=== PATIENT | male | born 1965 | race Caucasian/White ===

== ENCOUNTER 2018-06-01 22:15 | Inpatient (IN) | payer OTHER ==
[~2018-06-01] VITALS: Ht 182.9 cm; Wt 107.5 kg
--- NOTE | 2018-06-01 22:19 | ED DYSPNEA/ASTHMA COMPLAINT ---
History of Present Illness General Chief Complaint: Dyspnea (COPD, CHF, Other) Stated Complaint: DIFF BREATHING Source: patient, old records, EMS Exam Limitations: clinical condition Vital Signs & Intake/Output Vital Signs & Intake/Output Vital Signs Date Time Temp Pulse Resp B/P B/P Pulse O2 O2 Flow FiO2 Mean Ox Delivery Rate 06/02 0605 125 06/02 0308 101 97 06/02 0117 98.4 105 22 126/66 96 Nasal 6.0L Cannula 06/02 0105 102 96 06/01 2248 98.4 109 22 153/93 95 Aerosol Mask 06/01 2220 95 Aerosol 6.0L Mask ED Intake and Output 06/02 0000 06/01 1200 Intake Total Output Total Balance Patient 230 lb Weight Weight Reported by Patient Measurement Method Reconcile Medications Albuterol Sulfate (Proair Hfa) 90 MCG HFA.AER.AD 2 PUF INH Q4-6 PRN PRN COPD (Reported) Levocetirizine Dihydrochloride 5 MG TABLET 1 TAB PO QPM ALLERGY (Reported) Lisinopril 20 MG TABLET 1 TAB PO DAILY HTN (Reported) Metoprolol Succinate 50 MG TAB.ER.24H 1 TAB PO DAILY HEART HEALTH (Reported) [place]-3 Acid Ethyl Esters 1 GRAM CAPSULE 2 CAP PO BID SUPPLEMENT (Reported) Promethazine HCl/Codeine (Promethazine-Codeine Syrup) 6.25 MG-10 MG/5 ML SYRUP 10 ML PO QPM ALLERGY (Reported) Rosuvastatin Calcium (Crestor) 20 MG TABLET 1 TAB PO DAILY HL (Reported) Verapamil HCl (Verapamil ER) 120 MG TABLET.ER 1 TAB PO DAILY HTN (Reported) Triage Nurses Notes Reviewed? 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 HPI: 52yo gentleman h/o paroxysmal afib, left bundle branch block, presents with dyspnea for the past 4-5 days, which got worse tonight. He shares that he had sick contacts 4-5 days ago, "and then I got it." The medics noted that his 02 sat was 88-90% upon arrival. He was tripoding, unable to speak in complete sentences. He was given solumedrol 125mg iv, placed on continuous nebs and given magnesium sulfate 4gm iv. Upon arrival, he was still breathless, with difficulty speaking, nearly tripoding. Past History Travel History Traveled to [place] past 21 day No Medical History Any Pertinent Medical History? see below for history Cardiovascular: LBBB, paroxysmal atrial fibrillation Surgical History Surgical History: non-contributory Family History Hx Contributory? No Review of Systems Review of Systems Constitutional: Reports: no symptoms. EENTM: Reports: no symptoms. Respiratory: Reports: no symptoms. Cardiovascular: Reports: no symptoms. GI: Reports: no symptoms. Genitourinary: Reports: no symptoms. Musculoskeletal: Reports: no symptoms. Skin: Reports: no symptoms. Neurological/Psychological: Reports: no symptoms. Hematologic/Endocrine: Reports: no symptoms. Immunologic/Allergic: Reports: no symptoms. All Other Systems: Reviewed and Negative Physical Exam Physical Exam General Appearance: well developed/nourished, moderate distress Head: atraumatic, normal appearance Eyes: Bilateral: normal appearance. Ears, Nose, Throat: normal pharynx, normal ENT inspection, hearing grossly normal Neck: normal inspection, supple, full range of motion Respiratory: decreased breath sounds, crackles, respiratory distress, bilateral wheeze w/prolonged expiratory phase. Cardiovascular: regular rate/rhythm Gastrointestinal: normal bowel sounds, soft, non-tender, no organomegaly Rectal: normal exam Extremities: normal inspection, normal capillary refill, normal range of motion, no edema Neurologic/Psych: no motor/sensory deficits, awake, alert, oriented x 3 Skin: intact, normal color Core Measures ACS in differential dx? No CVA/TIA Diagnosis No Sepsis Present: No Sepsis Focused Exam Completed? No Progress Differential Diagnosis: asthma, AMI, bronchitis, CHF, COPD Plan of Care: Orders Procedure Date/time Status EKG 06/03 1030 Active CBC WITHOUT DIFFERENTIAL 06/03 0600 Active BASIC ELECTROLYTES PLUS BUN&CR 06/03 0600 Active EKG 06/03 0430 Active Nothing by Mouth 06/02 B Active TROPONIN LEVEL 06/02 1030 Active EKG 06/02 1030 Active LACTIC ACID 06/02 0503 Active TROPONIN LEVEL 06/02 0430 Active EKG 06/02 0430 Active LACTIC ACID 06/02 0124 Complete Weight 06/02 0116 Active Vital Signs 06/02 0116 Active Teach/Educate 06/02 011 Active Pain Treatment and Response 08/30 0116 Active Nutritional Intake, Monitor 06/02 0116 Active Isolation 06/02 0116 Active Intake & Output 06/02 0116 Active Patient Care Conference 06/02 0116 Active Activity/Ambulation 06/02 0116 Active Lab Add-on Test 06/02 0032 Active Saline Lock 06/02 0031 Active Pathway - chart 06/02 0031 Active Patient Data 06/02 0031 Active CULTURE,URINE 06/02 0031 Active LOWER RESPIRATORY CULTURE 06/02 0031 Active URINALYSIS 06/02 0031 Active TRC EVALUATION (GEN) 06/02 UNK Active PEAK FLOW MEASUREMENT (GEN) 06/02 UNK Active OXYGEN SETUP (GEN) 06/02 UNK Active CONTIN. POSITIVE AIRWAY PRESS 06/02 UNK Complete House Staff 06/02 UNK Active Lab Add-on Test 06/02 UNK Active VTE Mechanical Prophylaxis 06/02 UNK Active Vital Signs 06/02 UNK Active Telemetry/Heating And Ventilating Tender 06/02 UNK Active Intake & Output 06/02 UNK Active Activity/Ambulation 06/02 UNK Active Patient Data 06/01 2349 Active Saline Lock 06/01 2340 Active Misc Message 06/01 2340 Active ED Holding Orders 06/01 2340 Active Admit to inpatient 06/01 2340 Active Vital Signs 06/01 2340 Active Code Status 06/01 2340 Active CONTIN. POSITIVE AIRWAY PRESS 06/01 2330 Complete EKG 06/01 2330 Active TSH REFLEX 06/01 2232 Complete PHOSPHORUS 06/01 2232 Complete MAGNESIUM 06/01 2232 Complete D-DIMER 06/01 223 Complete BLOOD CULTURE 06/01 223 Active BLOOD CULTURE 06/01 2225 Active TROPONIN LEVEL 06/01 2224 Complete LIPASE 06/01 2224 Complete LACTIC ACID 06/01 2224 Complete HEPATIC FUNCTION PANEL 06/01 2224 Complete CBC WITHOUT DIFFERENTIAL 06/01 222 Complete BASIC METABOLIC PANEL 06/01 2224 Complete AMYLASE 06/01 222 Complete EKG 06/01 2224 Active Current Medications Sig/Clemente Start time Last Medication Dose Stop Time Status Admin Atorvastatin Calcium 20 MG 1700 06/02 1700 AC (Lipitor) Azithromycin 500 MG DAILY 06/02 09 AC (Zithromax) Sodium Chloride 250 ML (Normal Saline 0.9%) Enoxaparin Sodium 40 MG DAILY 06/02 09 AC (Lovenox) Lisinopril 20 MG DAILY 06/02 09 AC (Prinivil) Metoprolol Succinate 50 MG DAILY 06/02 09 AC (Toprol Xl) Verapamil HCl 120 MG DAILY 06/02 09 AC (Isoptin-Calan Sr 120MG Tab) Sodium Chloride 1,000 ML Q6H 06/02 0330 AC 06/02 (Normal Saline 0.9%) 0555 Methylprednisolone 40 MG Q6 06/02 0130 AC 06/02 (Solumedrol) 0555 Sodium Chloride 3,129.78 ML ONCE ONE 06/02 0045 CAN (Normal Saline 0.9%) 06/02 0046 Acetaminophen 1,000 MG Q6P PRN 06/02 003 AC (Ofirmev) Ibuprofen 600 MG Q6P PRN 06/02 003 AC (Motrin) Oxycodone/ 1 TAB Q6P PRN 06/02 003 AC Acetaminophen (Percocet) Laboratory Tests 06/02/18 0500: Troponin I Pending 06/02/18 0500: Lactic Acid Pending 06/02/18 0200: Lactic Acid 5.9 H 06/01/182: Anion Gap 15, Estimated GFR > 60, BUN/Creatinine Ratio 20.0, Glucose 175 H, Lactic Acid 4.6 H, Calcium 10.3 H, Phosphorus 2.4 L, Magnesium 3.0 H, Total Bilirubin 0.4, Direct Bilirubin 0.3, AST 21, ALT 27, Alkaline Phosphatase 80, Troponin I < 0.01, Total Protein 7.5, Albumin 4.7, Amylase 50, Lipase 133, TSH & T3 &Free T4 Intrp 0.583, D-Dimer High Sensitivty < 200, CBC w Diff NO MAN DIFF REQ, RBC 4.94, MCV 92.1, MCH 30.5, MCHC 33.1, RDW 14.3, MPV 8.2, Gran % 75.2, Lymphocytes % 18.1 L, Monocytes % 6.5, Eosinophils % 0, Basophils % 0.2, Absolute Granulocytes 14.8 H, Absolute Lymphocytes 3.6 H, Absolute Monocytes 1.3 H, Absolute Eosinophils 0, Absolute Basophils 0 Microbiology 06/02 31 URINE ROUT: Urine Culture - COLB 06/02 31 LOWER RESP: Respiratory Culture - COLB 06/02 31 LOWER RESP: Gram Stain - COLB 06/01 2325 BLOOD: Blood Culture - RECD 06/01 2310 BLOOD: Blood Culture - RECD Diagnostic Imaging: Viewed by Me: Radiology Read. Discussed w/RAD: Radiology Read. CXR Impression: PATIENT: JOSE WHITAKER PRESENT AGE: 52 PATIENT ACCOUNT NO: [id number] : 67 LOCATION: [facility] ORDERING PHYSICIAN: John Rodrigues MD SERVICE DATE: 06/01/18 EXAM TYPE: RAD - XRY- PORTABLE CHEST XRAY EXAMINATION: XR PORTABLE CHEST CLINICAL INFORMATION: Chest pain. COMPARISON: None TECHNIQUE: Portable frontal view of the chest was obtained. 10:42 PM FINDINGS: No significant abnormality is noted involving the heart, lungs, mediastinum, bony thorax or soft tissues. IMPRESSION: No acute abnormality of the chest. DICTATED BY: Asher Irby MD DATE/TIME DICTATED:2306 DANCE ENTERTAINER:REID DATE/TIME TRANSCRIBED:06/01/182306 CONFIDENTIAL, DO NOT COPY WITHOUT APPROPRIATE AUTHORIZATION. <Electronically signed in Other Vendor System> SIGNED BY: Asher Irby MD 06/01/182310 Initial ED EKG: lbbb (old) Departure Departure Disposition: STILL A PATIENT Condition: Stable Clinical Impression Primary Impression: COPD exacerbation Secondary Impressions: Nonsustained ventricular tachycardia Departure Forms: Customer Survey General Discharge Information Admission Note Sp[facility]: [facility] Documentation of Exam: Documentation of any treatments & extenuating circumstances including Concerns Regarding Discharge (functional status, medication knowledge or non-compliance, living conditions, etc.) that warrant an admission rather than observation: pt with dyspnea, most consistent with asthma exacerbation vs copd... pt presented breathless, tripoding. Critical Care Note Critical Care Note Critical Care Time: 30-74 min Comments: mag sulfate en route, continuous nebs,
[2018-06-01 22:47] LABS: ABSOLUTE BASOPHIL COUNT 0 /CUMM (0.0-0.2); ABSOLUTE EOSINOPHIL COUNT 0 /CUMM (0.0-0.7); ABSOLUTE GRANULOCYTE CT 14.8 /CUMM (1.4-6.5); ABSOLUTE LYMPH COUNT 3.6 /CUMM (1.2-3.4); ABSOLUTE MONOCYTE COUNT 1.3 /CUMM (0.10-0.60); BASOPHIL % 0.2 % (0.0-2.0); EOSINOPHIL % 0 % (0-5); HEMATOCRIT 45.5 % (42-52); MEAN CORPUSCULAR HGB 30.5 PG (27.0-31.0); MEAN CORPUSCULAR HGB CONC 33.1 G/DL (33.0-37.0); MEAN CORPUSCULAR VOLUME 92.1 FL (80.0-94.0); MEAN PLATELET VOLUME 8.2 FL (7.4-10.4); PLATELET COUNT 306 /CUMM (130-400); RBC DISTRIBUTION WIDTH 14.3 % (11.5-14.5); RED BLOOD CELL CT 4.94 /CUMM (4.70-6.10); WHITE BLOOD CELL COUNT 19.7 /CUMM (4.8-10.8)
[2018-06-01 23:06] LABS: GRANULOCYTE % 75.2 % (42.2-75.2)
--- NOTE | 2018-06-01 23:11 | RADIOLOGY REPORT ---
EXAMINATION: XR PORTABLE CHEST CLINICAL INFORMATION: Chest pain. COMPARISON: None TECHNIQUE: Portable frontal view of the chest was obtained. 10:42 PM FINDINGS: No significant abnormality is noted involving the heart, lungs, mediastinum, bony thorax or soft tissues. IMPRESSION: No acute abnormality of the chest.
--- NOTE | 2018-06-02 00:31 | History & Physical ---
Topher Izaguirre 06/02/18 0029: General Information and HPI MD Statement: I have seen and personally examined JULIANNEJOSE Wilks and documented this H&P. The patient is a 52 year old M who presented with a patient stated chief complaint of [difficulty breathing]. History of Present Illness: 52-year-old male with PMH of previous atrial fibrillation status post ablation ( 5 years ago), HTN, HLD, LAURIE on CPAP, COPD (suggested by medication regimen although patient denies ever being diagnosed), and seasonal allergies. This past week patient started having flu-like symptoms of non productive cough and nasal congestion. 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 Therefore he saw his cell stripper (who he usually follows for his allergies) and was prescribed bronchodilators, azithromycin, and a PO prednisone taper. Per patient, he has never used these respiratory medications prior to Wednesday. He was compliant with the regimen however his SOB continued to worsen eventually landing him at [place] ED. Patient is a previous smoker, believes he quit 3 years ago, and had a about half a PPD for about 20 years. His last hospitalization was for an episode of Afib that occured after his ablation for which he got IV Cardizem and prior to that the previous hospitalization was for his ablation. His ablation was done at [facility] and he usually follows with Dr. Berkowitz. According to patient he has had a LBBB for many years that he is well aware of. On presentation to the ED patient was in tripod postion and unable to speak and was therefore placed on continuous nebulizers as well as Solumedrol. He denies any diaphoresis, lightheadedness, changes in vision, or tingling/ numbness in his upper extremities. Allergies/Medications Home Med list Albuterol Sulfate (Proair Hfa) 90 MCG HFA.AER.AD 2 PUF INH Q4-6 PRN PRN COPD (Reported) Aspirin (Aspirin*) 81 MG TAB.CHEW 1 TAB PO DAILY HEART (Reported) Levocetirizine Dihydrochloride 5 MG TABLET 1 TAB PO QPM ALLERGY (Reported) Lisinopril 20 MG TABLET 1 TAB PO DAILY HTN (Reported) Metoprolol Succinate 50 MG TAB.ER.24H 1 TAB PO DAILY HEART HEALTH (Reported) [place]-3 Acid Ethyl Esters 1 GRAM CAPSULE 2 CAP PO BID SUPPLEMENT (Reported) Promethazine HCl/Codeine (Promethazine-Codeine Syrup) 6.25 MG-10 MG/5 ML SYRUP 10 ML PO QPM ALLERGY (Reported) Rosuvastatin Calcium (Crestor) 20 MG TABLET 1 TAB PO DAILY HL (Reported) Verapamil HCl (Verapamil ER) 120 MG TABLET.ER 1 TAB PO DAILY HTN (Reported) Past History Travel History Traveled to [place] past 21 day No Medical History Cardiovascular: LBBB paroxysmal atrial fibrillation Surgical History Surgical History: hip replacement Past Family/Social History Psychosocial History Smoking Status: Former Smoker ETOH Use: occasional use Employment History Employment EMT Review of Systems Review of Systems Constitutional: Reports: see HPI. Exam & Diagnostic Data Last 24 Hrs of Vital Signs/I&O Vital Signs Date Time Temp Pulse Resp B/P B/P Pulse O2 O2 Flow FiO2 Mean Ox Delivery Rate 06/02 0308 101 97 06/02 0117 98.4 105 22 126/66 96 Nasal 6.0L Cannula 06/02 0105 102 96 06/01 2248 98.4 109 22 153/93 95 Aerosol Mask 06/01 2220 95 Aerosol 6.0L Mask Intake & Output 06/02 0800 06/02 0000 06/01 1600 Intake Total Output Total Balance Patient 230 lb Weight Weight Reported by Patient Measurement Method Physical Exam General Appearance Alert, Oriented X3, Cooperative, No Acute Distress Skin Temp/Moisture Exam: Warm/Dry HEENT Atraumatic, EOMI Neck Supple, No JVD Cardiovascular Normal S1, Normal S2 Lungs Clear to Auscultation, Normal Air Movement Abdomen Normal Bowel Sounds, Soft, No Tenderness Neurological Normal Speech Extremities No Cyanosis, No Tenderness/Swelling Last 24 Hrs of Labs/Marc: Laboratory Tests 06/02/18 0500: Troponin I Pending 06/02/18 0500: Lactic Acid Pending 06/02/18 0200: Lactic Acid 5.9 H 06/01/182: Anion Gap 15, Estimated GFR > 60, BUN/Creatinine Ratio 20.0, Glucose 175 H, Lactic Acid 4.6 H, Calcium 10.3 H, Phosphorus 2.4 L, Magnesium 3.0 H, Total Bilirubin 0.4, Direct Bilirubin 0.3, AST 21, ALT 27, Alkaline Phosphatase 80, Troponin I < 0.01, Total Protein 7.5, Albumin 4.7, Amylase 50, Lipase 133, TSH & T3 &Free T4 Intrp 0.583, D-Dimer High Sensitivty < 200, CBC w Diff NO MAN DIFF REQ, RBC 4.94, MCV 92.1, MCH 30.5, MCHC 33.1, RDW 14.3, MPV 8.2, Gran % 75.2, Lymphocytes % 18.1 L, Monocytes % 6.5, Eosinophils % 0, Basophils % 0.2, Absolute Granulocytes 14.8 H, Absolute Lymphocytes 3.6 H, Absolute Monocytes 1.3 H, Absolute Eosinophils 0, Absolute Basophils 0 Microbiology 06/02 31 URINE ROUT: Urine Culture - COLB 06/02 31 LOWER RESP: Respiratory Culture - COLB 06/02 31 LOWER RESP: Gram Stain - COLB 06/01 2325 BLOOD: Blood Culture - RECD 06/01 2310 BLOOD: Blood Culture - RECD Assessment/Plan Assessment: 52-year-old male with PMH of previous atrial fibrillation status post ablation ( 5 years ago), HTN, HLD, LAURIE on CPAP, COPD (suggested by medication regimen although patient denies ever being diagnosed), and seasonal allergies. NSVT could be due to recent heavy albuterol use LBBB on EKG not concerning at the moment because patient has had it for many years Trops negative x 2 so far Patient reports worsening SOB for past week despite bronchodilator therapy We will continue nebs/bronchodilator/steroid therapy Elevated white count can be 2/2 to steroids but may also suggest infectious etiology CXR was negative for pneuomonia or acute process Tachycardia can be 2/2 to albuterol use Patient has been afebrile and he has been afebrile as well We should emperically treat for infection as he is positive for sick contacts Problems: #COPD Exacerbation #Leukocytosis (WBC 19.7) #NSVT #Prior hx of Afib s/p Ablation (not on A/C) #LAURIE on CPAP #HTN #HLD #Seasonal Allergies - Admit to telemetry due to new onset NSVT - Cardio consult - IV Medrol - Azithromycin - Ceftriaxone - DuoNebs - Metoprolol - Lisinopril - Verapamil - Lipitor - Continue CPAP - Biologic anti allergic meds DVT ppx Full Code As Ranked By This Provider Problem List: 1. COPD exacerbation Core Measures/Misc (06/20) Acute Coronary Syndrome ACS Diagnosis: No Congestive Heart Failure Congestive Heart Failure Diagnosis No Cerebrovascular Accident CVA/TIA Diagnosis: No VTE (View Protocol) VTE Risk Factors Age>40 No Mechanical VTE Prophylaxis d/t N/A MechProphylax Ordered No VTE Pharm Prophylaxis d/t NA PharmProphylax ordered Sepsis (View protocol) Sepsis Present: No If YES complete Sepsis Event Note If YES complete Sepsis Event Note Rachel Sprague 06/02/18 0033: Core Measures/Misc (06/20) Sepsis (View protocol) If YES complete Sepsis Event Note If YES complete Sepsis Event Note Resident Review Statement Resident Statement: examined this patient, discussed with software development intern, agreed with software development intern Other Findings: This is a 52-year-old male with past medical history of hypertension on lisinopril, hyperlipidemia on statin, obstructive sleep apnea on CPAP, previous history of atrial fibrillation status post ablation (approximately 5 years ago), seasonal allergies and daily cetirizine, COPD, previous smoker (quit 3 years ago ), nonalcoholic came in with chief complain of difficulty breathing since 5 days prior to presentation. Apparently 5 days prior to today's presentation, he started having a dry cough, started to feel short of breath, had congested nose, his partner was also sick as well as his girlfriend, he made appointment with pulmonology Dr zimmerman, who started him on inhalers, prescribed him a by mouth prednisone taper as well as azithromycin. He continued to take this medicine on Wednesday, however his shortness of breath along with dry cough just worsened, where and he was now short of breath even at rest, and was working for breathing a lot more, therefore presented to [place] emergency department. 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 He has never been to [place] before, however he does endorses a history of having a left bundle branch block on EKG which was old and not a new finding on current EKG. His cardiology is Dr. Berkowitz. His vitals on presentation temperature of 98.4, pulse of 105, respiration of 22, blood pressure 126/66, he was saturating 96% on 6 L of nasal cannula. On exam, initially while in the emergency department, he was short of breath, tripoding, placed on aerosol mask, and looked in moderate distress, however upon reexamination while on the floor is a shortness of breath was much better. HEENT atraumatic, PERRLA, no JVD. CVS S1 and S2 present RS bilateral wheezing present Per abdomen : Nontender, soft. Bilateral lower extremity no edema clubbing or cyanosis. Relevant labs white count of 19.7, no bands, H/H of 15.1/45.5, platelet of 306. History of 144, potassium of 4.0, BUN/creatinine 16/0.8, glucose of 175. initial lactic acid was elevated at 4.6. Calcium 10.3, phosphorus 2.4, medication 3.0. Liver function tests, malaise lipase and normal limits. TSH within normal limit Chest x-ray did not show any acute abnormality. We will admit the patient to telemetry for continuous cardiac monitoring and evidence of an SVT on EKG as well as left bundle branch propped, apparently which after talking to the patient seems to be old but we do not have a previous EKG. Problem list along with assessment and plan. #1 COPD exacerbation. #2 leukocytosis. #3 nonsustained ventricular tachycardia. #4 history of atrial fibrillation status post ablation on verapamil and aspirin. #5 seasonal allergies. #6 hypertension. #7 hyperlipidemia. Assessment. Mr. Cunningham seems to have worsening shortness of breath possibly exacerbated by viral/allergic exposure with positive sick contact, causing his COPD to exacerbate, failed outpatient by mouth prednisone and azithromycin treatment and needs further aggressive treatment of COPD. He does have a leukocytosis but that can be attributed to recent prednisone use. He has tachycardia and mild lactic acid elevation, the tachycardia could be because of nebulizations as well as increased work of breathing, chest x-ray did not show any evidence for pneumoniA ,he also did not report any increased sputum reduction or any other systemic symptoms like fever, other vitals are stable, he did receive initial IV ceftriaxone and azithromycin, however we will treat him as COPD exacerbation for now, as he does not seem to have an infection. * Continue to monitor on telemetry. * Continue to monitor vitals, intake and output, continue TRC nebulizations. * IV Solu-Medrol 40 every 6. * Continue azithromycin for anti-inflammatory effect. * Even though periodically metoprolol can cause bronchospasm, with his current EKG showing nonsustained ventricular tachycardia, we will continue the beta lorenzo at home dosage. * Continue lisinopril. * Continue aspirin. * Continue verapamil. * Continue daily cetirizine. * Continue to follow CBCs, BEP. * Serial EKG, troponin * Cardiology consult in a.m. * Continue to follow blood cultures, urine cultures and sputum cultures. * He says that he takes some autoimmune drug for his allergies, did not find any in the reconsult med, please confirm CMR in the a.m. Full code. The prophylaxis with Lovenox. Pain pathway. Maribel Rajan MD 06/02/18 0056: Core Measures/Misc (06/20) Sepsis (View protocol) If YES complete Sepsis Event Note If YES complete Sepsis Event Note Attending MD Review Statement Attending Statement Attending MD Statement: examined this patient, discuss w/resident/PA/PUBLIC HEALTH OUTREACH WORKER, agreed w/resident/PA/PUBLIC HEALTH OUTREACH WORKER, reviewed EMR data (avail) Attending Assessment/Plan: 52M PMH COPD, LAURIE on CPAP, HTN, HLD presenting with 3 days of progressive shortness of breath and cough. Has a friend who was sick 4 days ago, since then has been coughing more and feeling worse. Upon arrival to ER was having severe difficulty breathing with tripoding and unable to speak and was placed on continuous nebulizer treatment and given Solumedrol. He slowly improved and is now feeling better. Currently breathing comfortably, speaking in full sentences without dyspnea, and with no complaints. He has wheezing on exam. Doing well on 6L venti mask. Had an episode of a sensation of chest fluttering and was found to have a 3-beat run of v-tach on monitor. Labs show WBC 19, lactate 4.6, CXR negative, EKG shows known LBBB without acute changes or evidence of v-tach. 1. COPD Exacerbation 2. Acute respiratory failure 3. Lactic acidosis 4. LAURIE on CPAP 5. NSVT Plan - Admit to telemetry - Solumedrol 40mg q6h - Nebulizers standing - Continue Azithromycin - Sputum culture - Gentle IV hydration - Trend lactate to normal - Continue b-lorenzo - Cardiology consult for NSVT - Continue CPAP - Continue home medications - DVT PPx
--- NOTE | 2018-06-02 00:59 | Admission Certification ---
Admission Certification Certification Statement - As attending physician, I certify that at the time of - admission, based on clinical presentation, severity of - symptoms, need for further diagnostic testing and - therapeutic interventions, and risk of adverse outcomes - without in-hospital treatment, in my clinical assessment, - this patient requires an acute hospital stay for a minimum - of two nights or longer. I have also considered psychsocial - factors such as support system, advanced age, financial - issues, cognitive issues, and failed out-patient treatments, - past re-admission history, safety of patient, and lack of - compliance as applicable. Specific rationale supporting this admission is: COPD exacerbation initially unable to speak due to SOB with elevated lactate
[2018-06-02] MEDS ORDERED: METOPROLOL SUCC50 M2 PO (01:02)
[2018-06-02] MEDS ORDERED: PROAIR HFA8.5 GM INH (01:03)
[2018-06-02] MEDS ORDERED: VERAPAMIL ER120 M1 PO (01:04)
[2018-06-02] MEDS ORDERED: OMEGA-3 ACID ETH1 GM PO (01:04)
[2018-06-02] MEDS ORDERED: PROMETHAZINE-C118 ML PO (01:04)
[2018-06-02] MEDS ORDERED: LISINOPRIL20 M1 PO (01:04)
[2018-06-02] MEDS ORDERED: CRESTOR20 M2 PO (01:05)
[2018-06-02 01:17] VITALS: BP 126/66
[2018-06-02] MEDS ORDERED: LEVOCETIRIZINE D5 M1 PO (01:27)
[2018-06-02 06:30] VITALS: BP 122/64
--- NOTE | 2018-06-02 08:33 | PN- Housestaff ---
Ella Luis 06/02/18 0833: Subjective Follow-up For: COPD exacerbation Afib with RVR Subjective: Afebrile overnight. Patient is seen and examined in bed this morning. Patient denies any active chest pain or shortness of breath, but mentions overnight he did have some few palpitations. Patient was noted to have 2 episodes of A. Fib with RVR since last night. Patient otherwise denies any new complaints today. Review of Systems Constitutional: Reports: see HPI. Objective Last 24 Hrs of Vital Signs/I&O Vital Signs Date Time Temp Pulse Resp B/P B/P Pulse O2 O2 Flow FiO2 Mean Ox Delivery Rate 06/02 1436 98.1 68 18 128/72 94 Room Air 06/02 0909 Room Air 06/02 0852 98.6 133 22 122/64 06/02 0847 98.6 133 22 122/64 06/02 0847 98.6 133 22 122/64 06/02 0630 98.6 133 22 122/64 99 CPAP 06/02 0605 125 06/02 0308 101 97 06/02 0117 98.4 105 22 126/66 96 Nasal 6.0L Cannula 06/02 0105 102 96 06/02 0100 96 CPAP 4.0L 06/01 2248 98.4 109 22 153/93 95 Aerosol Mask 06/01 2220 95 Aerosol 6.0L Mask Intake & Output 06/02 1600 06/02 0800 06/02 0000 Intake Total 300 Output Total 700 Balance -400 Intake, IV 300 Output, Urine 700 Patient 237 lb 230 lb Weight Weight Bed scale Reported by Patient Measurement Method Physical Exam General Appearance: Alert, Oriented X3, Cooperative Skin: No Rashes, No Breakdown HEENT: Atraumatic Neck: Supple, No JVD Cardiovascular: Regular Rate, Normal S1, Normal S2 Lungs: Clear to Auscultation Abdomen: Soft, No Tenderness Extremities: No Edema, Normal Pulses Assessment/Plan Assessment: 52 YO M with past medical history of hypertension on lisinopril, hyperlipidemia on statin, obstructive sleep apnea on CPAP, previous history of atrial fibrillation status post ablation (approximately 5 years ago), seasonal allergies and daily cetirizine, COPD, previous smoker (quit 3 years ago), nonalcoholic came in with chief complaint of difficulty breathing since 5 days prior to presentation. His phosphatic fertilizer supervisor is Dr. Berkowitz. His vitals on presentation temperature of 98.4, pulse of 105, respiration of 22, blood pressure 126/66, he was saturating 96% on 6 L of nasal cannula. Problem list along with assessment and plan. #1 COPD exacerbation. #2 leukocytosis. #3 nonsustained ventricular tachycardia. #4 history of atrial fibrillation status post ablation on verapamil and aspirin. #5 seasonal allergies. #6 hypertension. #7 hyperlipidemia. Etiology in this case with a presentation of worsening shortness of breath possibly exacerbated by viral/allergic exposure with positive sick contact, causing his COPD to exacerbate, failed outpatient by mouth prednisone and azithromycin treatment and needs further aggressive treatment of COPD. He does have a leukocytosis but that can be attributed to recent prednisone use. He has tachycardia and mild lactic acid elevation, the tachycardia could be because of nebulizations as well as increased work of breathing, chest x-ray did not show any evidence for pneumoniA ,he also did not report any increased sputum reduction or any other systemic symptoms like fever, other vitals are stable, he did receive initial IV ceftriaxone and azithromycin, however we will treat him as COPD exacerbation for now, as he does not seem to have an infection. #COPD exacerbation -Admitted to telemetry floor for monitoring -Continue to monitor vitals, intake and output -IV Solu-Medrol 40 every 6. -Continue azithromycin for anti-inflammatory effect. -Continue to follow blood cultures, urine cultures and sputum cultures. #Atrial Fibrillation w. RVR -Patient takes Verapamil 120 mg qd and Metoprolol 50 mg, 2 tabs qam and 1 tab qpm at home for proper rate control -Cardiology consulted; rec. start Eliquis 5 mg BID, began 06/02 -Serial EKG, troponin #Home medications -Continue lisinopril. -Continue aspirin. -Continue verapamil. -Continue daily cetirizine. FC Problem List: 1. COPD exacerbation 2. Nonsustained ventricular tachycardia 3. Atrial fibrillation with rapid ventricular response Pain Ratin Pain Location: na Pain Goal: Remain pain free Pain Plan: na Tomorrow's Labs & Rationales: routine Page Jenkins 06/02/18 1338: Attending MD Review Statement Attending Statement Attending MD Statement: examined this patient, discuss w/resident/PA/[employer], agreed w/resident/PA/[employer], reviewed EMR data (avail), discussed with nursing, discussed with case mgmt Attending Assessment/Plan: Lactic acidosis- persistent. will give another NS bolus and will cont to trend it and see if it comes down. Afib with RVR- cardio consult appreciated. start on eliquis. Still with RVR. COPD exac- wheezing better. cont on iv steroids and zithromax. cxr- no infiltrates. WBC could be secondary to recent steroids pt was started on. Will get UA and U tox.
[2018-06-02] MEDS ORDERED: ASPIRIN81 M4 PO (08:40)
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
--- NOTE | 2018-06-02 12:41 | Cons- Cardiology ---
General Information and HPI Consulting Request Date of Consult: 06/02/18 Requested By: Page Jenkins MD Reason for Consult: Atrial fibrillation History of Present Illness: The patient is a 52-year-old male who is followed by Dr. Berkowitz from my group. He has a history of paroxysmal atrial fibrillation, status post ablation, chronic left bundle branch block, obstructive sleep apnea, and hyperlipidemia. He had a cardiac catheterization in 2011 which showed no obstructive coronary artery disease. He developed symptoms of an upper respiratory infection 1 week ago with productive cough and nasal congestion. He was prescribed azithromycin in addition to bronchodilators and a prednisone taper. The shortness of breath worsened and he presented to the emergency department. In the emergency department he was noted to be in atrial fibrillation with rapid ventricular rate. He was reported to have possible ventricular tachycardia, however no strips of this are available, and this may have actually been atrial fibrillation with left bundle branch block. He converted spontaneously to sinus rhythm, however 1 hour ago he again developed atrial fibrillation with ventricular rate in the 120s, and he remains in atrial fibrillation at this time. No chest pain. No palpitations. No diaphoresis. No nausea or vomiting. No lightheadedness or dizziness. Allergies/Medications Home Med List: Albuterol Sulfate (Proair Hfa) 90 MCG HFA.AER.AD 2 PUF INH Q4-6 PRN PRN COPD (Reported) Aspirin (Aspirin*) 81 MG TAB.CHEW 1 TAB PO DAILY HEART (Reported) Levocetirizine Dihydrochloride 5 MG TABLET 1 TAB PO QPM ALLERGY (Reported) Lisinopril 20 MG TABLET 1 TAB PO DAILY HTN (Reported) Metoprolol Succinate 50 MG TAB.ER.24H 1 TAB PO DAILY HEART HEALTH (Reported) [place]-3 Acid Ethyl Esters 1 GRAM CAPSULE 2 CAP PO BID SUPPLEMENT (Reported) Promethazine HCl/Codeine (Promethazine-Codeine Syrup) 6.25 MG-10 MG/5 ML SYRUP 10 ML PO QPM ALLERGY (Reported) Rosuvastatin Calcium (Crestor) 20 MG TABLET 1 TAB PO DAILY HL (Reported) Verapamil HCl (Verapamil ER) 120 MG TABLET.ER 1 TAB PO DAILY HTN (Reported) Review of Systems Review of Systems: No rash. No tremor. No melena. All other systems were reviewed, and were noted to be negative. Past History Travel History Traveled to [place] past 21 day No Medical History Cardiovascular: LBBB paroxysmal atrial fibrillation Surgical History Surgical History: hip replacement Family History Family History Reviewed? reviewed/non-contributory Psychosocial History Where Do You Live? 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 Vital Signs and I&O Vital Signs Date Time Temp Pulse Resp B/P B/P Pulse O2 O2 Flow FiO2 Mean Ox Delivery Rate 06/02 0909 Room Air 06/02 0852 98.6 133 22 122/64 06/02 0847 98.6 133 22 122/64 06/02 0847 98.6 133 22 122/64 06/02 0630 98.6 133 22 122/64 99 CPAP 06/02 0605 125 06/02 0308 101 97 06/02 0117 98.4 105 22 126/66 96 Nasal 6.0L Cannula 06/02 0105 102 96 06/02 0100 96 CPAP 4.0L 06/01 2248 98.4 109 22 153/93 95 Aerosol Mask 06/01 2220 95 Aerosol 6.0L Mask Intake & Output 06/02 1600 06/02 0800 06/02 0000 06/01 1600 06/01 0800 06/01 0000 Intake Total 300 Output Total 700 Balance -400 Intake, IV 300 Output, Urine 700 Patient 237 lb 230 lb Weight Weight Bed scale Reported by Patient Measurement Method Physical Exam: Gen: The patient is in no acute distress HEENT: Normal nose, ears, and oropharynx. Pupils equal bilaterally. Conjunctiva normal. Neck: Supple with no JVD, no masses, and no thyromegaly Lungs: Bilateral wheezes with normal respiratory effort Heart: irreg irreg , S1, S2, no murmurs. No peripheral edema, 2+ pulses in the lower extremities bilaterally Abdomen: Soft, nontender, no masses. No hepatomegaly. No splenomegaly Extremities: No clubbing or cyanosis. Normal muscle strength in the upper and lower extremities Skin: Normal skin turgor with no skin ulcers or lesions noted. Neuro: Cranial nerves intact. Sensation intact Psych: Alert and oriented x 3 with appropriate affect Labs/Marc Results: Laboratory Tests 06/02 06/02 06/02 06/02 1105 1030 1030 1030 Chemistry Sodium (137 - 145 mmol/L) 140 Potassium (3.5 - 5.1 mmol/L) 4.4 Chloride (98 - 107 mmol/L) 106 Carbon Dioxide (22 - 30 mmol/L) 22 Anion Gap (5 - 16) 12 BUN (9 - 20 mg/dL) 11 Creatinine (0.7 - 1.2 mg/dL) 0.6 L Estimated GFR (>60 ml/min) > 60 BUN/Creatinine Ratio (7 - 25 %) 18.3 Hemoglobin A1c (4.2 - 5.8 %) 5.7 Lactic Acid (0.7 - 2.1 mmol/L) 5.6 H Magnesium (1.6 - 2.3 mg/dL) 1.7 Troponin I (<0.11 ng/ml) 0.06 Triglycerides (<150 mg/dL) 107 Cholesterol (< 200 MG/DL) 145 LDL Cholesterol, Calc (65 - 129 mg/dL) 60 L HDL Cholesterol (40 - 60 mg/dL) 64 H Cholesterol/HDL Ratio (0.00 - 4.88 %) 2 Toxicology Urine Opiates Screen (>2000 NG/ML) Pending Methadone Screen (>300 NG/ML) Pending Barbiturate Screen (>200 NG/ML) Pending Ur Phencyclidine Scrn (>25 NG/ML) Pending Amphetamines Screen (>1000 NG/ML) Pending U Benzodiazepines Scrn (>200 NG/ML) Pending Urine Cocaine Screen (>300 NG/ML) Pending Urine Cannabis Screen (>50 NG/ML) Pending Urines Urine Color (YEL,AMB,STR) STRAW Urine Clarity (CLEAR) CLEAR Urine pH (5.0 - 8.0) 6.0 Ur Specific [place] (1.001 - 1.035) 1.010 Urine Protein (NEG,<30 MG/DL) NEG Urine Ketones (NEG) NEG Urine Nitrite (NEG) NEG Urine Bilirubin (NEG) NEG Urine Urobilinogen (0.1 - 1.0 EU/dl) 0.2 Ur Leukocyte Esterase (NEG) NEG Ur Microscopic EXAM NOT REQUIRED Urine Hemoglobin (NEG) NEG Urine Glucose (N MG/DL) 250 H 06/02 06/02 06/02 06/02 0630 0500 0500 0200 Chemistry Lactic Acid (0.7 - 2.1 mmol/L) Cancelled 5.4 H 5.9 H Troponin I (<0.11 ng/ml) 0.03 06/01 2232 Chemistry Sodium (137 - 145 mmol/L) 144 Potassium (3.5 - 5.1 mmol/L) 4.0 Chloride (98 - 107 mmol/L) 108 H Carbon Dioxide (22 - 30 mmol/L) 21 L Anion Gap (5 - 16) 15 BUN (9 - 20 mg/dL) 16 Creatinine (0.7 - 1.2 mg/dL) 0.8 Estimated GFR (>60 ml/min) > 60 BUN/Creatinine Ratio (7 - 25 %) 20.0 Glucose (65 - 99 mg/dL) 175 H Lactic Acid (0.7 - 2.1 mmol/L) 4.6 H Calcium (8.4 - 10.2 mg/dL) 10.3 H Phosphorus (2.5 - 4.5 mg/dL) 2.4 L Magnesium (1.6 - 2.3 mg/dL) 3.0 H Total Bilirubin (0.2 - 1.3 mg/dL) 0.4 Direct Bilirubin (< 0.4 mg/dL) 0.3 AST (17 - 59 U/L) 21 ALT (21 - 72 U/L) 27 Alkaline Phosphatase (< 127 U/L) 80 Troponin I (<0.11 ng/ml) < 0.01 Total Protein (6.3 - 8.2 g/dL) 7.5 Albumin (3.5 - 5.0 g/dL) 4.7 Amylase (30 - 110 U/L) 50 Lipase (23 - 300 U/L) 133 TSH &T3 &Free T4 Intrp (0.27 - 4.20 uIU/mL) 0.583 Coagulation D-Dimer High Sensitivty (0 - 243 ng/ml) < 200 Hematology CBC w Diff NO MAN DIFF REQ WBC (4.8 - 10.8 /CUMM) 19.7 H RBC (4.70 - 6.10 /CUMM) 4.94 Hgb (14.0 - 18.0 G/DL) 15.1 Hct (42 - 52 %) 45.5 MCV (80.0 - 94.0 FL) 92.1 MCH (27.0 - 31.0 PG) 30.5 MCHC (33.0 - 37.0 G/DL) 33.1 RDW (11.5 - 14.5 %) 14.3 Plt Count (130 - 400 /CUMM) 306 MPV (7.4 - 10.4 FL) 8.2 Gran % (42.2 - 75.2 %) 75.2 Lymphocytes % (20.5 - 51.1 %) 18.1 L Monocytes % (1.7 - 9.3 %) 6.5 Eosinophils % (0 - 5 %) 0 Basophils % (0.0 - 2.0 %) 0.2 Absolute Granulocytes (1.4 - 6.5 /CUMM) 14.8 H Absolute Lymphocytes (1.2 - 3.4 /CUMM) 3.6 H Absolute Monocytes (0.10 - 0.60 /CUMM) 1.3 H Absolute Eosinophils (0.0 - 0.7 /CUMM) 0 Absolute Basophils (0.0 - 0.2 /CUMM) 0 Diagnostic Data EKG Results EKG tracings independently reviewed, and reveals atrial fibrillation with ventricular response of 99 with left bundle branch block CXR Results Negative Other Results Echocardiogram 04/26/17: Normal LV size and systolic function. LVEF 55%. Abnormal diastolic function. Paradoxical septal motion secondary to left bundle branch block. Minimal aortic and mitral regurgitation. Mild tricuspid regurgitation. Mild right atrial enlargement. Assessment/Plan Assessment/Plan The patient is a 60-year-old male with history of paroxysmal atrial fibrillation status post ablation and chronic left bundle branch block who presented with as per as her infection and COPD exacerbation. While in the hospital he has had 2 episodes of atrial fibrillation with rapid ventricular rate, and he remains in atrial for ablation at this time. He was reported to have nonsustained ventricular tachycardia, however no strips are available and it is unclear whether this was actually rapid atrial fibrillation in the setting of left bundle branch block. Recommendations: * Treatment of COPD as per the medical service * Continue verapamil and metoprolol for atrial fibrillation, with dose adjustment as needed to control ventricular rate * Start Eliquis 5 mg p.o. twice daily * Continue to monitor on telemetry * Echocardiogram Consult Acknowledgment - Thank you for your consult request.
[2018-06-02 14:36] VITALS: BP 128/72
[2018-06-02 17:58] LABS: ABSOLUTE BASOPHIL COUNT 0 /CUMM (0.0-0.2); ABSOLUTE EOSINOPHIL COUNT 0 /CUMM (0.0-0.7); ABSOLUTE GRANULOCYTE CT 14.7 /CUMM (1.4-6.5); ABSOLUTE LYMPH COUNT 1.5 /CUMM (1.2-3.4); ABSOLUTE MONOCYTE COUNT 0.9 /CUMM (0.10-0.60); BASOPHIL % 0.1 % (0.0-2.0); EOSINOPHIL % 0 % (0-5); GRANULOCYTE % 85.9 % (42.2-75.2); HEMATOCRIT 41.5 % (42-52); MEAN CORPUSCULAR HGB 31.4 PG (27.0-31.0); MEAN CORPUSCULAR HGB CONC 34.3 G/DL (33.0-37.0); MEAN CORPUSCULAR VOLUME 91.6 FL (80.0-94.0); MEAN PLATELET VOLUME 8.6 FL (7.4-10.4); PLATELET COUNT 218 /CUMM (130-400); RBC DISTRIBUTION WIDTH 14.1 % (11.5-14.5); RED BLOOD CELL CT 4.54 /CUMM (4.70-6.10); WHITE BLOOD CELL COUNT 17.1 /CUMM (4.8-10.8)
[2018-06-02 22:53] VITALS: BP 142/98
[2018-06-03 06:30] VITALS: BP 136/88
[2018-06-03 07:46] LABS: ABSOLUTE BASOPHIL COUNT 0 /CUMM (0.0-0.2); ABSOLUTE EOSINOPHIL COUNT 0 /CUMM (0.0-0.7); ABSOLUTE GRANULOCYTE CT 15.7 /CUMM (1.4-6.5); ABSOLUTE LYMPH COUNT 1.9 /CUMM (1.2-3.4); ABSOLUTE MONOCYTE COUNT 0.8 /CUMM (0.10-0.60); BASOPHIL % 0.1 % (0.0-2.0); EOSINOPHIL % 0 % (0-5); HEMATOCRIT 45.4 % (42-52); MEAN CORPUSCULAR HGB 31.3 PG (27.0-31.0); MEAN CORPUSCULAR HGB CONC 34.1 G/DL (33.0-37.0); MEAN CORPUSCULAR VOLUME 91.8 FL (80.0-94.0); MEAN PLATELET VOLUME 8.8 FL (7.4-10.4); PLATELET COUNT 246 /CUMM (130-400); RBC DISTRIBUTION WIDTH 13.6 % (11.5-14.5); RED BLOOD CELL CT 4.94 /CUMM (4.70-6.10); WHITE BLOOD CELL COUNT 18.4 /CUMM (4.8-10.8)
--- NOTE | 2018-06-03 07:49 | Discharge Summary ---
See Addendum Visit Information Visit Dates Admission Date: 06/01/18 Discharge Date: 06/03/18 Hospital Course Course Attending Physician: Alice BALDWIN,Page Easley Primary Care Physician: Patient Has No Primary Care Dr Hospital Course: 52 YO M with past medical history of hypertension on lisinopril, hyperlipidemia on statin, obstructive sleep apnea on CPAP, previous history of atrial fibrillation status post ablation (approximately 5 years ago), seasonal allergies and daily cetirizine, COPD, previous smoker (quit 3 years ago), nonalcoholic came in with chief complaint of difficulty breathing since 5 days prior to presentation. His brush machine setter is Dr. Berkowitz. His vitals on presentation temperature of 98.4, pulse of 105, respiration of 22, blood pressure 126/66, he was saturating 96% on 6 L of nasal cannula. Problem list along with assessment and plan. #1 COPD exacerbation. #2 leukocytosis. #3 nonsustained ventricular tachycardia. #4 history of atrial fibrillation status post ablation on verapamil and aspirin. #5 seasonal allergies. #6 hypertension. #7 hyperlipidemia. Etiology in this case with a presentation of worsening shortness of breath possibly exacerbated by viral/allergic exposure with positive sick contact, causing his COPD to exacerbate, failed outpatient by mouth prednisone and azithromycin treatment and needs further aggressive treatment of COPD. He does have a leukocytosis but that can be attributed to recent prednisone use. He has tachycardia and mild lactic acid elevation, the tachycardia could be because of nebulizations as well as increased work of breathing, chest x-ray did not show any evidence for pneumoniA ,he also did not report any increased sputum reduction or any other systemic symptoms like fever, other vitals are stable, he did receive initial IV ceftriaxone and azithromycin, however we will treat him as COPD exacerbation for now, as he does not seem to have an infection. #COPD exacerbation -Patient was admitted to telemetry floor for monitoring -Continue to monitor vitals, intake and output -IV Solu-Medrol 40 every 6. -Continued azithromycin for anti-inflammatory effect. -Continued to follow blood cultures, urine cultures and sputum cultures. #Atrial Fibrillation w. RVR -Patient takes Verapamil 120 mg qd and Metoprolol 50 mg, 2 tabs qam and 1 tab qpm at home for proper rate control -Cardiology consulted; started Eliquis 5 mg BID, began 06/02 -Serial EKG, troponin Allergies: Coded Allergies: tramadol (UNKNOWN 06/02/18) PER REMA MANN ON 1NO. PATIENT STATED HE IS ALLERGIC TO TRAMADOL. NO OTHER DETAILS PROVIDED. -CG 06/02/18 1436 Disposition Summary Disposition Principal Diagnosis: COPD exacerbation Additional Diagnosis: Atrial Fibrillation with RVR Discharge Disposition: home or self care Discharge Instructions General Discharge Information Code Status: Full Code Patient's Diet: Regular Patient's Activity: ad patti Follow-Up Instructions/Appts: Please follow up with your PCP within one week. Please follow up with your Dump Motorman within one week. Please continue to take your home medications. Medications at Discharge Discharge Medications: Continue taking these medications: Metoprolol Succinate (Metoprolol Succinate) 50 MG TAB.ER.24H 1 Tablet ORAL DAILY Qty = 90 Comments: Last Taken: 06/03 Time: 829 Albuterol Sulfate (Proair Hfa) 90 MCG HFA.AER.AD 2 Puff Inhale through mouth EVERY 4-6 HOURS NEEDED as needed for COPD Qty = 9 Comments: NOT GIVEN IN HOSPITAL Promethazine HCl/Codeine (Promethazine-Codeine Syrup) 6.25 MG-10 MG/5 ML SYRUP 10 Milliliters ORAL Every night Qty = 140 Comments: NOT GIVEN IN HOSPITAL [place]-3 Acid Ethyl Esters ([place]-3 Acid Ethyl Esters) 1 GRAM CAPSULE 2 Capsule ORAL TWICE DAILY Qty = 120 Comments: NOT GIVEN IN HOSPITAL Lisinopril (Lisinopril) 20 MG TABLET 1 Tablet ORAL DAILY Qty = 90 Comments: Last Taken: 06/03 Time: 829 Verapamil HCl (Verapamil ER) 120 MG TABLET.ER 1 Tablet ORAL DAILY Qty = 90 Comments: Last Taken: 06/03 Time: 08 Rosuvastatin Calcium (Crestor) 20 MG TABLET 1 Tablet ORAL DAILY Qty = 90 Comments: GIVEN LIPITOR IN HOSPITAL Last Taken: 06/02 Time: 1615 Levocetirizine Dihydrochloride (Levocetirizine Dihydrochloride) 5 MG TABLET 1 Tablet ORAL Every night Qty = 30 Comments: NOT GIVEN IN HOSPITAL Aspirin (Aspirin*) 81 MG TAB.CHEW 1 Tablet ORAL DAILY Comments: NOT GIVEN IN HOSPITAL Start taking the following new medications: Prednisone (Prednisone) 10 MG TABLET 1 Tablet ORAL DAILY Qty = 20 No Refills Instructions: 1-2: 4 TAB DAILY 3-4: 3 TAB DAILY 9:5-6: 2 TAB DAILY 9/7-8: 1 TAB DAILY Comments: GIVEN IV SOLU MEDROL IN HOSPITAL Last Taken: 06/03 Time: 829 Apixaban (Eliquis) 5 MG TABLET 1 Tablet ORAL TWICE DAILY Qty = 60 No Refills Instructions: Please take as directed Comments: Last Taken: 06/03 Time: 829 Copies To: No known PCP Attending Review Statement Documenting Attending: Page Jenkins MD
--- NOTE | 2018-06-03 07:53 | PN- Housestaff ---
See Addendum Ella Luis 06/03/18 0749: Subjective Follow-up For: COPD exacerbation Afib with RVR Subjective: Afebrile overnight. Patient is seen and examined in bed this morning. Patient states he had no complaints overnight. Patient denied any chest pain and shortness of breath. Patient states he would like to be discharged early today due to a prior engagement. Patient advised to follow up with his building estimator as an outpatient. Patient otherwise denied any diarrhea, constipation, n/v, abdominal pain, fevers, chills, and fatigue. Review of Systems Constitutional: Reports: see HPI. Objective Last 24 Hrs of Vital Signs/I&O Vital Signs Date Time Temp Pulse Resp B/P B/P Pulse O2 O2 Flow FiO2 Mean Ox Delivery Rate 06/03 0630 97.7 52 18 136/88 96 CPAP 06/03 0020 75 95 06/02 2253 97.9 67 16 142/98 91 Room Air 06/02 2209 82 96 06/02 2035 97 Room Air 06/02 1436 98.1 68 18 128/72 94 Room Air 06/02 0909 Room Air 06/02 0852 98.6 133 22 122/64 06/02 0847 98.6 133 22 122/64 06/02 0847 98.6 133 22 122/64 Intake & Output 06/03 0800 06/03 0000 06/02 1600 Intake Total 320 1120 Output Total 1900 1900 Balance -1580 -780 Intake, IV 300 Intake, Oral 320 820 Output, Urine 1900 1900 Physical Exam General Appearance: Alert, Oriented X3, Cooperative, No Acute Distress Skin: No Rashes, No Breakdown HEENT: Atraumatic Neck: Supple, No JVD Cardiovascular: Regular Rate, Normal S1, Normal S2 Lungs: Clear to Auscultation Neurological: Normal Speech Extremities: No Edema, Normal Pulses Assessment/Plan Assessment: 52 YO M with past medical history of hypertension on lisinopril, hyperlipidemia on statin, obstructive sleep apnea on CPAP, previous history of atrial fibrillation status post ablation (approximately 5 years ago), seasonal allergies and daily cetirizine, COPD, previous smoker (quit 3 years ago), nonalcoholic came in with chief complaint of difficulty breathing since 5 days prior to presentation. His building estimator is Dr. Berkowitz. His vitals on presentation temperature of 98.4, pulse of 105, respiration of 22, blood pressure 126/66, he was saturating 96% on 6 L of nasal cannula. Problem list along with assessment and plan. #1 COPD exacerbation. #2 leukocytosis. #3 nonsustained ventricular tachycardia. #4 history of atrial fibrillation status post ablation on verapamil and aspirin. #5 seasonal allergies. #6 hypertension. #7 hyperlipidemia. Etiology in this case with a presentation of worsening shortness of breath possibly exacerbated by viral/allergic exposure with positive sick contact, causing his COPD to exacerbate, failed outpatient by mouth prednisone and azithromycin treatment and needs further aggressive treatment of COPD. He does have a leukocytosis but that can be attributed to recent prednisone use. He has tachycardia and mild lactic acid elevation, the tachycardia could be because of nebulizations as well as increased work of breathing, chest x-ray did not show any evidence for pneumoniA ,he also did not report any increased sputum reduction or any other systemic symptoms like fever, other vitals are stable, he did receive initial IV ceftriaxone and azithromycin, however we will treat him as COPD exacerbation for now, as he does not seem to have an infection. #COPD exacerbation -Admitted to telemetry floor for monitoring -Continue to monitor vitals, intake and output -IV Solu-Medrol 40 every 6. -Continue azithromycin for anti-inflammatory effect. -Continue to follow blood cultures, urine cultures and sputum cultures. #Atrial Fibrillation w. RVR -Patient takes Verapamil 120 mg qd and Metoprolol 50 mg, 2 tabs qam and 1 tab qpm at home for proper rate control -Cardiology consulted; rec. start Eliquis 5 mg BID, began 06/02 -Serial EKG, troponin #Home medications -Continue lisinopril. -Continue aspirin. -Continue verapamil. -Continue daily cetirizine. Problem List: 1. COPD exacerbation 2. Nonsustained ventricular tachycardia 3. Atrial fibrillation with rapid ventricular response Pain Ratin Pain Location: na Pain Goal: Remain pain free Pain Plan: na Tomorrow's Labs & Rationales: routine Page Jenkins 06/03/18 1110: Attending MD Review Statement Attending Statement Attending MD Statement: examined this patient, discuss w/resident/PA/AUTOMOTIVE GLAZIER, agreed w/resident/PA/AUTOMOTIVE GLAZIER, reviewed EMR data (avail), discussed with nursing, discussed with case mgmt Attending Assessment/Plan: Lactic acidosis- Trending down . will recheck this am and if trending down further will dc pt home. Afib with RVR- cardio consult appreciated. on eliquis. Converted to NSR this am. Pt was told to cont on eliquis and f/u with his regular cardiology. pt may be a candidate for Loop recorder. COPD exac- wheezing better. switch to po sterods and dc on prendnisone taper and zithromax for a total of 5 days. . cxr- no infiltrates. WBC could be secondary to recent steroids pt was started on. U tox- negative.
--- NOTE | 2018-06-03 08:19 | PN- Student ---
Subjective Subjective: Patient is seen and examined this morning. He reports no overnight events, and states that he slept well. Per nursing staff patient converted from atrial fibrillation to sinus bradycardia at 0421 and EKG was obtained. The patient states that his breathing is much better than it was when he first came in to the hospital and he is eager to go home. He denies any CP, palpitations, SOB, or fevers/chills. He reports that he does not wish to continue taking Eliquis as he has converted back to sinus rhythm. Objective Objective: Vitals - Temp 97.7F, pulse 52, respiratory rate 18, blood pressure 136/88, oxygen saturation 96% on CPAP overnight General: comfortable appearing male sitting up in bed in no apparent distress CV: rate is bradycardic, rhythm regular, no mumurms/rubs/gallops appreciated, radial pulses 2+ bilaterally Pulmonary: CTA bilaterally, no wheezes, rales, or rhonchi, patient is breathing comfortably Neuro: A&O x 4 Psych: patient is anxious about being discharged but is otherwise calm and cooperative Results Results: Laboratory Tests 06/03/18 0630: Sodium Pending, Potassium Pending, Chloride Pending, Carbon Dioxide Pending, Anion Gap Pending, BUN Pending, Creatinine Pending, BUN/Creatinine Ratio Pending , CBC w Diff NO MAN DIFF REQ, RBC 4.94, MCV 91.8, MCH 31.3 H, MCHC 34.1, RDW 13.6, MPV 8.8, Gran % 85.5 H, Lymphocytes % 10.1 L, Monocytes % 4.3, Eosinophils % 0, Basophils % 0.1, Absolute Granulocytes 15.7 H, Absolute Lymphocytes 1.9, Absolute Monocytes 0.8 H, Absolute Eosinophils 0, Absolute Basophils 0 06/02/18 1930: Lactic Acid 3.3 H 06/02/18 1710: Troponin I 0.05, CBC w Diff NO MAN DIFF REQ, RBC 4.54 L, MCV 91.6, MCH 31.4 H, MCHC 34.3, RDW 14.1, MPV 8.6, Gran % 85.9 H, Lymphocytes % 8.7 L, Monocytes % 5.3, Eosinophils % 0, Basophils % 0.1, Absolute Granulocytes 14.7 H, Absolute Lymphocytes 1.5, Absolute Monocytes 0.9 H, Absolute Eosinophils 0, Absolute Basophils 0 06/02/18 1402: Lactic Acid 4.7 H 06/02/18 1105: Urine Opiates Screen 196, Methadone Screen < 40, Barbiturate Screen < 60, Ur Phencyclidine Scrn < 6.00, Amphetamines Screen < 100, U Benzodiazepines Scrn < 85, Urine Cocaine Screen < 50, Urine Cannabis Screen < 5.00, Urine Color STRAW, Urine Clarity CLEAR, Urine pH 6.0, Ur Specific [place] 1.010, Urine Protein NEG, Urine Ketones NEG, Urine Nitrite NEG, Urine Bilirubin NEG, Urine Urobilinogen 0.2, Ur Leukocyte Esterase NEG, Ur Microscopic EXAM NOT REQUIRED, Urine Hemoglobin NEG, Urine Glucose 250 H 06/02/18 1030: Troponin I 0.06 06/02/18 1030: Lactic Acid 5.6 H 06/02/18 1030: Anion Gap 12, Estimated GFR > 60, BUN/Creatinine Ratio 18.3, Hemoglobin A1c 5.7, Magnesium 1.7, Triglycerides 107, Cholesterol 145, LDL Cholesterol, Calc 60 L, HDL Cholesterol 64 H, Cholesterol/HDL Ratio 2 06/02/18 0630: Lactic Acid Cancelled 06/02/18 0500: Troponin I 0.03 06/02/18 0500: Lactic Acid 5.4 H 06/02/18 0200: Lactic Acid 5.9 H 06/01/18 2232: Anion Gap 15, Estimated GFR > 60, BUN/Creatinine Ratio 20.0, Glucose 175 H, Lactic Acid 4.6 H, Calcium 10.3 H, Phosphorus 2.4 L, Magnesium 3.0 H, Total Bilirubin 0.4, Direct Bilirubin 0.3, AST 21, ALT 27, Alkaline Phosphatase 80, Troponin I < 0.01, Total Protein 7.5, Albumin 4.7, Amylase 50, Lipase 133, TSH & T3 &Free T4 Intrp 0.583, D-Dimer High Sensitivty < 200, CBC w Diff NO MAN DIFF REQ, RBC 4.94, MCV 92.1, MCH 30.5, MCHC 33.1, RDW 14.3, MPV 8.2, Gran % 75.2, Lymphocytes % 18.1 L, Monocytes % 6.5, Eosinophils % 0, Basophils % 0.2, Absolute Granulocytes 14.8 H, Absolute Lymphocytes 3.6 H, Absolute Monocytes 1.3 H, Absolute Eosinophils 0, Absolute Basophils 0 Microbiology 06/02 1105 URINE ROUT: Urine Culture - RECD 06/02 0031 LOWER RESP: Respiratory Culture - COLB 06/02 0031 LOWER RESP: Gram Stain - COLB 06/015 BLOOD: Blood Culture - RES 06/01 2310 BLOOD: Blood Culture - RES Assessment/Plan Assessment: 52 y/o male with history of atrial fibrillation s/p ablation 5 years ago recently started on eliquis, hypertension, hyperlipidemia, LAURIE on CPAP, seasonal allergies, previous smoker (quit 3 years ago) with COPD here for COPD exacerbation and nonsustained v-tach. Plan: Problem list #COPD exacerbation - patient has been tapering down on solumdedrol and is currently on 40 mg Q12 hours. Solumedrol should be discontinued. He is on azithromycin day 02/07. Continue with antibiotic until course has been completed. #Atrial fibrillation with RVR and LBBB - patient has spontaneously converted to sinus rhythm. He should continue to take Eliquis 5 mg BID as he seems to convert into and out of atrial fibrillation without being aware. Patient is hesistant about being on anticoagulation therapy and would like the input of his own squeezer operator, Dr. Berkowitz, before he decides if he would like to continue taking Eliquis. Troponin has come down from 0.06 to 0.05. #Unsustained v-tach - per cardiology, it is possible that the runs of v-tach patient experienced in the ED were actually atrial fibrillation with RVR and LBBB. There have been no further episodes of v-tach since the patient has been on tele. #Leukocytosis - WBC has improved to 17.1 yesterday. It is likely that the elevated WBC was due to the patient being on steroids for several days rather than due to an infectious process. Repeat CBC is pending at this time. #Lactic acidosis - Lactic acid has trended down (last three values: 5.6, 4.7, 3.3). The lactic acidosis was most likely due to patient's respiratory distress when he first presented to the hospital and given the clinical presentation it is unlikley that this was a sign of sepsis. Lactic acid no longer needs to be trended. #Seasonal allergies - continue with daily levocetirizine and allergy shots per Dr. Dean. #Hypertension - continue with home lisinopril. #Hyperlipidemia - cholesterol is well controlled with curernt regimen and patient should continue with home medications. #Disposition - patient is stable for discharge home and outpatient follow up with his squeezer operator Dr. Berkowitz and coverage specialist Dr. Dean after am labs return.
[2018-06-03 08:20] LABS: GRANULOCYTE % 85.5 % (42.2-75.2)
[2018-06-03 08:21] VITALS: BP 136/88
--- NOTE | 2018-06-03 08:50 | Patient Discharge Instructions ---
Discharge Instructions General Discharge Information You were seen/treated for: COPD exacerbation Atrial Fibrillation with RVR You had these procedures: ECG CXR Watch for these problems: If you experience any worsening leg swelling, shortness of breath, cough, fevers , chills, and fatigue please follow up with your PCP. Special Instructions: Please follow up with your PCP within one week. Please follow up with your Billing Machine Operator within one week. Please follow up with your PCP regarding your Lactic Acid levels. Please continue to take your home medications. Diet Continue normal diet: No Recommended Diet: Heart Healthy, Regular Activity Full Activity/No Limits: No Activity Self Limited: Yes Acute Coronary Syndrome Inclusion Criteria At DC or during hospital stay patient has or had the following: ACS DIAGNOSIS No Discharge Core Measures Meds if any: Prescribed or Continued at Discharge Meds if any: NOT Prescribed or Continued at Discharge Congestive Heart Failure Inclusion Criteria At DC or during hospital stay patient has or had the following: CHF DIAGNOSIS No Discharge Core Measures Meds if any: Prescribed or Continued at Discharge Meds if any: NOT Prescribed or Continued at Discharge Cerebrovascular accident Inclusion Criteria At DC or during hospital stay patient has or had the following: CVA/TIA Diagnosis No Discharge Core Measures Meds if any: Prescribed or Continued at Discharge Meds if any: NOT Prescribed or Continued at Discharge Venous thromboembolism Inclusion Criteria VTE Diagnosis No VTE Type NONE VTE Confirmed by (Test) NONE Discharge Core Measures - Per Current guidelines, there needs to be overlap - treatment for the first 5 days of Warfarin therapy. - If discharged on Warfarin prior to 5 days of - overlap therapy, the patient will need to be - assessed for post discharge needs including - *Post discharge parental anticoagulation - *Warfarin and/or parental anticoagulation education - *Follow up date to check INR post discharge At least 5 days overlap therapy as Inpatient No Meds if any: Prescribed or Continued at Discharge Note: Overlap Therapy is Warfarin and Anticoagulant Meds if any: NOT Prescribed or Continued at Discharge
[2018-06-03] MEDS ORDERED: ELIQUIS5 M1 PO ×2 (08:52→11:51)
[2018-06-03] MEDS ORDERED: PREDNISONE10 M2 PO ×2 (09:12→11:51)
--- NOTE | 2018-06-03 11:45 | PN- Cardiology ---
Subjective Subjective: Stable cardiac status today. Reverted to sinus rhythm overnight. Currently in sinus bradycardia on traffic monitor specialist with no further arrhythmias detected. Objective Vital Signs and I&Os Vital Signs Date Time Temp Pulse Resp B/P B/P Pulse O2 O2 Flow FiO2 Mean Ox Delivery Rate 06/03 0821 70 136/88 06/03 0821 136/88 06/03 0821 136/88 06/03 0630 97.7 52 18 136/88 96 CPAP 06/03 0020 75 95 06/02 2253 97.9 67 16 142/98 91 Room Air 06/02 2209 82 96 06/02 2035 97 Room Air 06/02 1436 98.1 68 18 128/72 94 Room Air Intake & Output 06/03 1600 06/03 0806/03 0000 06/02 1600 06/02 0806/02 0000 Intake Total 007 756 7073 Output Total 133 382 7545 1900 Balance - -780 Intake, IV 300 Intake, Oral 250 320 820 Output, Urine 085 616 5062 1900 Patient 237 lb 230 lb Weight Weight Bed scale Reported by Patient Measurement Method Physical Exam: Gen: The patient is in no acute distress HEENT: Normal nose, ears, and oropharynx. Pupils equal bilaterally. Conjunctiva normal. Neck: Supple with no JVD, no masses, and no thyromegaly Lungs: Bilateral wheezes with normal respiratory effort Heart: irreg irreg , S1, S2, no murmurs. No peripheral edema, 2+ pulses in the lower extremities bilaterally Abdomen: Soft, nontender, no masses. No hepatomegaly. No splenomegaly Extremities: No clubbing or cyanosis. Normal muscle strength in the upper and lower extremities Skin: Normal skin turgor with no skin ulcers or lesions noted. Neuro: Cranial nerves intact. Sensation intact Psych: Alert and oriented x 3 with appropriate affect Current Medications: Current Medications Sig/Clemente Start time Last Medication Dose Route Stop Time Status Admin Acetaminophen 1,000 MG Q6P PRN 06/02 0030 AC IV Albuterol Sulfate 3 ML Q4P PRN 06/02 0915 AC INH Apixaban 5 MG BID 06/02 1300 AC 06/03 PO 0821 Atorvastatin Calcium 20 MG 1700 06/02 1700 AC 06/02 PO 1622 Azithromycin 250 MG 2100 06/02 2100 AC 06/02 PO 205 Enoxaparin Sodium 40 MG DAILY 08/30 0900 DC SC Ibuprofen 600 MG Q6P PRN 06/02 0030 AC PO Lisinopril 20 MG DAILY 06/02 09 AC 06/03 PO 0821 Methylprednisolone 40 MG Q12 06/02 2100 AC 06/03 IV 0820 Methylprednisolone 40 MG Q8 06/02 1400 DC 06/02 IV 1437 Metoprolol Succinate 50 MG DAILY 06/02 09 AC 06/03 PO 0821 Oxycodone/ 1 TAB Q6P PRN 06/02 0030 AC Acetaminophen PO Patient Medication 1 ED ONE ONE 06/03 930 DC Teaching ED 06/03 931 Sodium Chloride 1,000 ML ONCE ONE 06/02 1345 DC 06/02 IV 06/02 1346 1426 Verapamil HCl 120 MG DAILY 06/02 900 AC 06/03 PO 08 Results Last 48 Hrs of Labs/Mics: Laboratory Tests 06/03/18 1010: Lactic Acid 3.5 H 06/03/18 0630: Anion Gap 9, Estimated GFR > 60, BUN/Creatinine Ratio 25.0, CBC w Diff NO MAN DIFF REQ, RBC 4.94, MCV 91.8, MCH 31.3 H, MCHC 34.1, RDW 13.6, MPV 8.8, Gran % 85.5 H, Lymphocytes % 10.1 L, Monocytes % 4.3, Eosinophils % 0, Basophils % 0.1, Absolute Granulocytes 15.7 H, Absolute Lymphocytes 1.9, Absolute Monocytes 0.8 H, Absolute Eosinophils 0, Absolute Basophils 0 06/02/18 1930: Lactic Acid 3.3 H 06/02/18 1710: Troponin I 0.05, CBC w Diff NO MAN DIFF REQ, RBC 4.54 L, MCV 91.6, MCH 31.4 H, MCHC 34.3, RDW 14.1, MPV 8.6, Gran % 85.9 H, Lymphocytes % 8.7 L, Monocytes % 5.3, Eosinophils % 0, Basophils % 0.1, Absolute Granulocytes 14.7 H, Absolute Lymphocytes 1.5, Absolute Monocytes 0.9 H, Absolute Eosinophils 0, Absolute Basophils 0 06/02/18 1402: Lactic Acid 4.7 H 06/02/18 1105: Urine Opiates Screen 196, Methadone Screen < 40, Barbiturate Screen < 60, Ur Phencyclidine Scrn < 6.00, Amphetamines Screen < 100, U Benzodiazepines Scrn < 85, Urine Cocaine Screen < 50, Urine Cannabis Screen < 5.00, Urine Color STRAW, Urine Clarity CLEAR, Urine pH 6.0, Ur Specific [place] 1.010, Urine Protein NEG, Urine Ketones NEG, Urine Nitrite NEG, Urine Bilirubin NEG, Urine Urobilinogen 0.2, Ur Leukocyte Esterase NEG, Ur Microscopic EXAM NOT REQUIRED, Urine Hemoglobin NEG, Urine Glucose 250 H 06/02/18 1030: Troponin I 0.06 06/02/18 1030: Lactic Acid 5.6 H 06/02/18 1030: Anion Gap 12, Estimated GFR > 60, BUN/Creatinine Ratio 18.3, Hemoglobin A1c 5.7, Magnesium 1.7, Triglycerides 107, Cholesterol 145, LDL Cholesterol, Calc 60 L, HDL Cholesterol 64 H, Cholesterol/HDL Ratio 2 06/02/18 0630: Lactic Acid Cancelled 06/02/18 0500: Troponin I 0.03 06/02/18 0500: Lactic Acid 5.4 H 06/02/18 0200: Lactic Acid 5.9 H 06/01/18 2232: Anion Gap 15, Estimated GFR > 60, BUN/Creatinine Ratio 20.0, Glucose 175 H, Lactic Acid 4.6 H, Calcium 10.3 H, Phosphorus 2.4 L, Magnesium 3.0 H, Total Bilirubin 0.4, Direct Bilirubin 0.3, AST 21, ALT 27, Alkaline Phosphatase 80, Troponin I < 0.01, Total Protein 7.5, Albumin 4.7, Amylase 50, Lipase 133, TSH & T3 &Free T4 Intrp 0.583, D-Dimer High Sensitivty < 200, CBC w Diff NO MAN DIFF REQ, RBC 4.94, MCV 92.1, MCH 30.5, MCHC 33.1, RDW 14.3, MPV 8.2, Gran % 75.2, Lymphocytes % 18.1 L, Monocytes % 6.5, Eosinophils % 0, Basophils % 0.2, Absolute Granulocytes 14.8 H, Absolute Lymphocytes 3.6 H, Absolute Monocytes 1.3 H, Absolute Eosinophils 0, Absolute Basophils 0 Assessment/Plan Assessment/Plan Assessment: 1. Respiratory infection/COPD exacerbation 2. Paroxysmal atrial fibrillation 3. Abnormal EKG with left bundle branch block Recommendations: -The patient is in sinus rhythm at the present time. -Continue current medication regimen including oral anticoagulation -From a cardiac standpoint, the patient should be stable for discharge. -The patient should follow-up with his regular eye specialist in the next 1-2 weeks for further medication adjustments, etc. -Otherwise, continue management as per the medical team Continue telemetry? No
== END 2018-06-03 12:50 | DRG 140 ==
LOC: ERH 22:15 → ERHI 23:40 → 1NO 23:40 → ENRESERV 06-02 00:18 → 1NO 06-02 01:02
PROVIDERS: Internal Medicine; Pediatrics; Student in an Organized Health Care Education/Training Program
PROC: 5A09357 Assistance with Respiratory Ventilation, Less than 24 Consecutive Hours, Continuous Positive Airway Pressure (ICD-10-PCS; principal; 2018-06-02)
DX: J44.1 Chronic obstructive pulmonary disease with (acute) exacerbation (principal); J96.01 Acute respiratory failure with hypoxia; I47.2 Ventricular tachycardia; I48.0 Paroxysmal atrial fibrillation; E87.2 Acidosis; G47.33 Obstructive sleep apnea (adult) (pediatric); J30.2 Other seasonal allergic rhinitis; I44.7 Left bundle-branch block, unspecified; I10 Essential (primary) hypertension; E78.5 Hyperlipidemia, unspecified; D72.829 Elevated white blood cell count, unspecified; Z87.891 Personal history of nicotine dependence; Z96.649 Presence of unspecified artificial hip joint
CPT/HCPCS: 1NSP; ERO; 36415; 36592; 71045; 80307; 81003; 82436; 87040; 87070; 87086; 93005; 93010; 94644; 96374; 99291; J0456; J0696; J1650; J2920; J7040